=== PATIENT | female | born 1960 | race Caucasian/White ===

== ENCOUNTER 2017-07-24 12:00 | Outpatient (RCR) | payer BC | END 2017-08-05 | LOC: OT 12:00 | PROVIDERS: ATTEND Surgery Surgery of the Hand | DX: S63.20 Unspecified subluxation of other finger (principal); M79.641 Pain in right hand; M25.641 Stiffness of right hand, not elsewhere classified; R53.1 Weakness | CPT/HCPCS: 97022 ×5; 97110 ×5; 97139; L3933 ==

== ENCOUNTER 2017-09-03 11:00 | Outpatient (RCR) | payer BC | END 2017-09-05 | LOC: OT 11:00 | PROVIDERS: ATTEND Surgery Surgery of the Hand | DX: S63.202A Unspecified subluxation of right middle finger, initial encounter (principal); M25.641 Stiffness of right hand, not elsewhere classified | CPT/HCPCS: 97010; 97022 ×3; 97110 ×4; 97139 ×2; L3933 ==

== ENCOUNTER 2017-10-23 15:51 | Outpatient (RCR) | payer BC | END 2017-11-03 | LOC: OT 15:51 | PROVIDERS: ATTEND Surgery Surgery of the Hand | DX: M25.641 Stiffness of right hand, not elsewhere classified (principal) | CPT/HCPCS: 97760 ==

== ENCOUNTER → 2017-12-03 | Outpatient (RCR) | payer BC | LOC: OT 11-06 11:48 | PROVIDERS: ATTEND Surgery Surgery of the Hand | DX: S63.270A Dislocation of unspecified interphalangeal joint of right index finger, initial encounter (principal); S63.272A Dislocation of unspecified interphalangeal joint of right middle finger, initial encounter ==

== ENCOUNTER 2017-12-17 14:00 | Outpatient (RCR) | payer BC | END 2018-01-03 | LOC: OT 14:00 | PROVIDERS: ATTEND Surgery Surgery of the Hand | DX: M25.641 Stiffness of right hand, not elsewhere classified (principal); R60.9 Edema, unspecified ==